=== PATIENT | male | born 1985 | race Caucasian/White ===

== ENCOUNTER 2024-03-01 08:38 | Outpatient (OUT) | payer OTHER, SELFPAY ==
--- NOTE | 2024-03-01 08:41 | VEIN_ITS ---
The [address] [address] Patient Name: ETHAN LONGORIA MRN: [id number] date: 1985 Sex: M Assigned Patient Location: Current Patient Location: [facility] Accession/Order Number: [id number] Exam Date: 03/01/2024 08:41 Report Date: 03/01/2024 10:43 At the request of: NON-STAFF PHYSICIAN Procedure: VC SEGMENTAL PRESSURES EXAM: VC SEGMENTAL PRESSURES HISTORY: R60.0. Peripheral vascular disease. COMPARISON: None. TECHNIQUE: Resting ABIs and segmental limb pressures. FINDINGS: Right resting ANAND normal at 1.26. Left resting ANAND normal at 1.22. Waveforms are multiphasic. No pressure gradients were demonstrated. VEIN/VC SEGMENTAL PRESSURES IMPRESSION: Normal resting ABIs. No pressure gradients noted. Multiphasic waveforms. Electronically authenticated by: Roland NGUYEN Date: 03/01/2024 10:43
== END 2024-03-01 08:39 | disposition home or self-care (01) ==
LOC: VC 08:39
DX: G57.31 Lesion of lateral popliteal nerve, right lower limb (principal); G57.91 Unspecified mononeuropathy of right lower limb; G57.82 Other specified mononeuropathies of left lower limb; R09.89 Other specified symptoms and signs involving the circulatory and respiratory systems
CPT/HCPCS: 93923

== ENCOUNTER 2024-03-01 09:36 | Outpatient (OUT) | payer OTHER, SELFPAY ==
--- NOTE | 2024-03-01 09:44 | XR_ITS ---
The [address] [address] Patient Name: ETHAN LONGORIA MRN: [id number] date: 1985 Sex: M Assigned Patient Location: [facility] Current Patient Location: Accession/Order Number: [id number] Exam Date: 03/01/2024 09:50 Report Date: 03/02/2024 07:10 At the request of: NON-STAFF PHYSICIAN Procedure: XR ankle RT min 3V PROCEDURE: XR tibia fibula RT 2V, XR ankle RT min 3V COMPARISON: None. HISTORY: Entrapment Of Left Saphenous Nerve FINDINGS: BONES:No acute fracture or dislocation. Evidence of remote healed mid diaphyseal fractures of the tibia and fibula with now removed fixation hardware. Enthesopathic spurring of the calcaneus at the Achilles insertion SOFT TISSUES:Negative. No visible soft tissue swelling. EFFUSION:None visible. OTHER: Negative. XR/XR ankle RT min 3V IMPRESSION: No acute abnormality of the tib-fib or ankle Electronically authenticated by: VASILE PARKS Date: 03/02/2024 07:10
--- NOTE | 2024-03-01 09:44 | XR_ITS ---
The [address] [address] Patient Name: ETHAN LONGORIA MRN: [id number] date: 1985 Sex: M Assigned Patient Location: [facility] Current Patient Location: Accession/Order Number: [id number] Exam Date: 03/01/2024 09:50 Report Date: 03/02/2024 07:10 At the request of: NON-STAFF PHYSICIAN Procedure: XR tibia fibula RT 2V PROCEDURE: XR tibia fibula RT 2V, XR ankle RT min 3V COMPARISON: None. HISTORY: Entrapment Of Left Saphenous Nerve FINDINGS: BONES:No acute fracture or dislocation. Evidence of remote healed mid diaphyseal fractures of the tibia and fibula with now removed fixation hardware. Enthesopathic spurring of the calcaneus at the Achilles insertion SOFT TISSUES:Negative. No visible soft tissue swelling. EFFUSION:None visible. OTHER: Negative. XR/XR tibia fibula RT 2V IMPRESSION: No acute abnormality of the tib-fib or ankle Electronically authenticated by: VASILE PARKS Date: 03/02/2024 07:10
== END 2024-03-01 09:37 | disposition home or self-care (01) ==
LOC: RAD 09:40
DX: G57.31 Lesion of lateral popliteal nerve, right lower limb (principal); G57.91 Unspecified mononeuropathy of right lower limb; G57.82 Other specified mononeuropathies of left lower limb; R09.89 Other specified symptoms and signs involving the circulatory and respiratory systems
CPT/HCPCS: 73590; 73610; 93923